=== PATIENT | male | born 1960 | race Caucasian/White ===

== ENCOUNTER 2016-07-04 20:23 | Emergency (ER) | payer BC ==
[~2016-07-04] VITALS: Ht 177.8 cm; Wt 87.0 kg
[2016-07-04 20:31] VITALS: BP 141/85; PULSE 86; RESP 20; TEMP 98.9; O2SAT 92
[2016-07-04] MEDS ORDERED: PRIL2.5P PO (20:36)
[2016-07-04] MEDS ORDERED: SILVER SULFADIAZINE 1% CR 50 GM JAR TOPICAL ONE (20:45)
[2016-07-04] MEDS ORDERED: SODIUM CHLOR 0.9% 1000 ML INJ 1,000 ML IV ONE ×2 (20:45)
[2016-07-04] MEDS ORDERED: SODIUM CHLORIDE 0.9% FLUSH 10 ML FLUSH IV FLUSH PRN (20:45)
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
[2016-07-04 21:23] LABS: AUTOMATED NEUTROPHIL # 4.6 TH/MM3 (1.8-7.7); BASOPHIL # 0.1 TH/MM3 (0-0.2); BASOPHIL % 0.7 % (0.0-2.0); EOSINOPHIL # 0.3 TH/MM3 (0-0.4); HEMATOCRIT 43.3 % (39.0-51.0); HEMO FLAGS DIFF FINAL; LYMPH % 34.5 % (9.0-44.0); MEAN CELL VOLUME 91.9 FL (80.0-100.0); MEAN CORPUSCULAR HEMOGLOBIN 32.3 PG (27.0-34.0); MEAN CORPUSCULAR HGB CONC 35.1 % (32.0-36.0); MONO % 8.6 % (0.0-8.0); NEUT % 53.2 % (16.0-70.0); PLATELET COUNT 203 TH/MM3 (150-450); RED BLOOD COUNT 4.71 MIL/MM3 (4.50-5.90); RED CELL DISTRIBUTION WIDTH 14.1 % (11.6-17.2); WHITE BLOOD COUNT 8.6 TH/MM3 (4.0-11.0)
[2016-07-04 21:27] LABS: APTT (PATIENT) 25.2 SEC (24.3-30.1); INTERNATIONAL NORMALIZED RATIO 0.9 RATIO
[2016-07-04 21:34] LABS: ANION GAP 11 MEQ/L (5-15)
[2016-07-04 21:37] LABS: ALKALINE PHOSPHATASE 82 U/L (45-117); ALT (GPT) 24 U/L (12-78); AST (GOT) 17 U/L (15-37); BICARBONATE 22.7 MEQ/L (21.0-32.0); BLOOD UREA NITROGEN 10 MG/DL (7-18); CHLORIDE 112 MEQ/L (98-107); GLOMERULAR FILTRATION RATE 70 ML/MIN (>89); POTASSIUM 3.4 MEQ/L (3.5-5.1); SODIUM (NA) 146 MEQ/L (136-145); TOTAL BILIRUBIN ADULT 0.1 MG/DL (0.2-1.0)
[2016-07-04] MEDS ORDERED: SILV1CRE20 TOPICAL (23:07)
[2016-07-04] MEDS ORDERED: TETANUS/DIPHTHERIA TOXOID ADULT 0.5 ML VIAL IM ONE (23:15)
[2016-07-04 23:21] VITALS: BP 160/95
[2016-07-25] MEDS ORDERED: SILV1CRE20 TOPICAL (09:41)
== END 2016-07-04 23:29 ==
LOC: NEPD 20:23
DX: T24.202A Burn of second degree of unspecified site of left lower limb, except ankle and foot, initial encounter (principal); T22.212A Burn of second degree of left forearm, initial encounter; T31.0 Burns involving less than 10% of body surface; X08.8XXA Exposure to other specified smoke, fire and flames, initial encounter; Y92.009 Unspecified place in unspecified non-institutional (private) residence as the place of occurrence of the external cause; Z23 Encounter for immunization
CPT/HCPCS: 16020; 80053; 80307; 85025; 85610; 85730; 90471; 90714; 96360; 99283; J7030

== ENCOUNTER 2016-07-06 13:47 | Emergency (ER) | payer SELFPAY ==
[~2016-07-06] VITALS: Ht 177.8 cm; Wt 86.0 kg
[~2016-07-06 13:47] MED LIST: PRIL2.5P PO; SILV1CRE20 TOPICAL
[2016-07-06 13:51] VITALS: BP 140/90; PULSE 76; RESP 20; TEMP 97.4; O2SAT 97
[2016-07-06] MEDS ORDERED: SILV1CRE20 TOPICAL (14:22)
[2016-07-06] MEDS ORDERED: ULTR50TA5 PO (14:22)
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
[2016-07-06] MEDS ORDERED: traMADol HCL 50 MG TAB PO ONE (14:30)
[2016-07-06] MEDS ORDERED: SILVER SULFADIAZINE 1% CR 50 GM JAR TOPICAL ONE (14:30)
[2016-07-25] MEDS ORDERED: SILV1CRE20 TOPICAL (09:41)
== END 2016-07-06 15:20 | disposition home or self-care (01) ==
LOC: NEPD 13:47
DX: T24.202D Burn of second degree of unspecified site of left lower limb, except ankle and foot, subsequent encounter (principal); T22.212D Burn of second degree of left forearm, subsequent encounter; T31.0 Burns involving less than 10% of body surface; X08.8XXD Exposure to other specified smoke, fire and flames, subsequent encounter; Y92.009 Unspecified place in unspecified non-institutional (private) residence as the place of occurrence of the external cause
CPT/HCPCS: 99282